=== PATIENT | female | born 1955 | race Caucasian/White ===

== ENCOUNTER 2022-10-15 07:54 | Inpatient (IN) | payer OTHER ==
[~2022-10-15] VITALS: Ht 170.2 cm; Wt 59.0 kg
[2022-10-15] MEDS ORDERED: ACETAMINOPHEN 500 MG TABLET ONE (08:35)
[2022-10-15] MEDS ORDERED: oxyCODONE HCL 10 MG TAB.ER.12H PO ONE ×2 (08:37→08:45)
[2022-10-15] MEDS ORDERED: GABAPENTIN 300 MG CAPSULE PO ONE (08:45)
[2022-10-15] MEDS ORDERED: CEFAZOLIN SOD 2 GM in D5W 50 ML IV ONE (08:45)
[2022-10-15] MEDS ORDERED: SCOPOLAMINE HYDROBROMIDE 1 MG PATCH .72 H (TRANSDERM-SCOP) TD ONE (08:45)
[2022-10-15] MEDS ORDERED: ACETAMINOPHEN 500 MG TABLET PO ONE (08:45)
[2022-10-15] MEDS ORDERED: CELECOXIB 100 MG CAPSULE PO ONE (08:45)
[2022-10-15] MEDS ORDERED: PROPOFOL 200MG/ 20ML VIAL (DIPRIVAN) IV ONE (10:14)
[2022-10-15] MEDS ORDERED: KETOROLAC TROMETHAMINE 30 MG VIAL ONE (10:14)
[2022-10-15] MEDS ORDERED: NS IRRIG SOLN 1000 ML IR ONE (10:14)
[2022-10-15] MEDS ORDERED: WATER FOR IRRIGATION,STERILE 1,000 ML IRRIG.SOLN IR ONE (10:14)
[2022-10-15] MEDS ORDERED: DEXAMETHASONE SOD PHOSPHATE 4 MG/ML VIAL ONE (10:14)
[2022-10-15] MEDS ORDERED: MORPHINE SULFATE 10MG/10ML PF AMP ONE (10:14)
[2022-10-15] MEDS ORDERED: ONDANSETRON HCL 4 MG/2 ML VIAL ONE (10:14)
[2022-10-15] MEDS ORDERED: NS 1000 ML IV.SOLN IV ONE (10:14)
[2022-10-15] MEDS ORDERED: ROCURONIUM BROMIDE 10 MG/ML (ZEMURON) ONE (10:14)
[2022-10-15] MEDS ORDERED: DESFLURANE 15 MIN GAS INH ONE (10:14)
[2022-10-15] MEDS ORDERED: MIDAZOLAM HCL 2 MG/2 ML VIAL (VERSED) ONE (10:14)
[2022-10-15] MEDS ORDERED: SUGAMMADEX SODIUM 200 MG/2 ML VIAL IV ONE (10:14)
[2022-10-15] MEDS ORDERED: LR 1,000 ML IV.SOLN IV ONE (10:14)
[2022-10-15] MEDS ORDERED: BUPIVACAINE /PF 0.25% 30 ML VIAL INJ ONE (10:14)
[2022-10-15] MEDS ORDERED: TRANEXAMIC ACID 1,000 MG/10 ML VIAL ONE (10:14)
[2022-10-15] MEDS ORDERED: HYDROmorphone 1 MG/ML INJ. CARTRIDGE IVP PRN ×5 (11:00→11:15)
[2022-10-15] MEDS ORDERED: oxyCODONE HCL 5 MG TABLET PO PRN (11:00)
[2022-10-15] MEDS ORDERED: traMADol HCL HCL 50 MG TABLET (ULTRAM) PO PRN (11:00)
[2022-10-15] MEDS ORDERED: LORATADINE 10 MG TABLET PO PRN (11:00)
[2022-10-15] MEDS ORDERED: METOCLOPRAMIDE HCL 10 MG/2 ML VIAL IVP PRN ×2 (11:15→13:15)
[2022-10-15] MEDS ORDERED: NALOXONE HCL 0.4 MG/ML AMP (NARCAN) IVP PRN ×4 (11:15→13:15)
[2022-10-15] MEDS ORDERED: DIPHENHYDRAMINE INJ 50 MG/ML VIAL IVP PRN (11:15)
[2022-10-15] MEDS ORDERED: MIDAZOLAM HCL 2 MG/2 ML VIAL (VERSED) IVP PRN (11:15)
[2022-10-15] MEDS ORDERED: MEPERIDINE HCL/PF 25 MG/ML DISP.SYRIN IVP PRN (11:15)
[2022-10-15] MEDS ORDERED: ONDANSETRON HCL 4 MG/2 ML VIAL IVP PRN ×2 (11:15→11:45)
[2022-10-15] MEDS: LR 1,000 ML IV SCH ×2 (11:15→21:46)
[2022-10-15] MEDS ORDERED: ACETAMINOPHEN I.V. 1000 MG 100 ML IV ONE (12:09)
[2022-10-15] MEDS ORDERED: LACTULOSE 20 GM/30 ML UDC PO PRN (13:15)
[2022-10-15] MEDS ORDERED: DIPHENHYDRAMINE HCL 25 MG CAPSULE PO PRN (13:15)
[2022-10-15] MEDS ORDERED: BISACODYL 10 MG/SUPPOSITORY RC PRN (13:15)
[2022-10-15] MEDS: ACETAMINOPHEN 500 MG TABLET PO SCH ×2 (14:00→21:44)
[2022-10-15] MEDS: KETOROLAC TROMETHAMINE 10 MG TABLET (TORADOL) PO SCH ×2 (14:00→22:00)
[2022-10-15 14:30] VITALS: BP_SYST 139
[2022-10-15] MEDS ORDERED: ZOLP10TA2 PO (14:55)
[2022-10-15] MEDS: oxyCODONE HCL 5 MG TABLET PO PRN ×2 (15:51→21:45)
[2022-10-15] MEDS: ceFAZolin SODIUM 2 GM in D5W 100 ML IV SCH ×2 (15:52→21:45)
[2022-10-15 16:02] VITALS: BP_SYST 132
[2022-10-15 20:00] VITALS: BP_SYST 128
[2022-10-15] MEDS: SENNOSIDES/DOCUSATE SODIUM 1 TAB TABLET(SENOKOT-S) PO SCH (21:00)
[2022-10-16] VITALS: BP_SYST 117
[2022-10-16] MEDS: ceFAZolin SODIUM 2 GM in D5W 100 ML IV SCH (05:47)
[2022-10-16] MEDS: KETOROLAC TROMETHAMINE 10 MG TABLET (TORADOL) PO SCH (05:50)
[2022-10-16] MEDS: oxyCODONE HCL 5 MG TABLET PO PRN (05:51)
[2022-10-16] MEDS: ACETAMINOPHEN 500 MG TABLET PO SCH (05:52)
[2022-10-16 07:52] LABS: BASOPHILS % (AUTO) 0.3 % (0.0-2.0); HEMATOCRIT 28.8 % (36-48); HEMOGLOBIN 9.8 g/dL (12.0-16.0); LYMPHOCYTES # (AUTO) 1.3 K/uL (1.0-5.5); MEAN CORPUSCULAR HEMOGLOBIN 30 pg (27-31); MEAN CORPUSCULAR HGB CONC 34 % (32-36); MEAN CORPUSCULAR VOLUME 88 fL (79.0-98.0); MONOCYTES # (AUTO) 0.9 K/uL (0.0-1.0); MONOCYTES % (AUTO) 9.1 % (1.7-9.3); NEUTROPHILS # (AUTO) 8.2 K/uL (1.8-7.7); NEUTROPHILS % (AUTO) 78.6 % (40.0-70.0); PLATELET COUNT (AUTO) 256 K/uL (130-430); RED BLOOD CELL COUNT(AUTO) 3.28 MIL/uL (4.2-6.2); RED CELL DISTRIBUTION WIDTH 14.4 % (9.0-15.0); WHITE BLOOD COUNT (AUTO) 10.4 K/uL (4.8-10.8)
[2022-10-16 08:00] VITALS: BP_SYST 117
[2022-10-16 08:05] LABS: CREATININE 1.02 mg/dL (0.55-1.30)
[2022-10-16 08:10] LABS: ALBUMIN 2.8 g/dL (3.4-4.8); TOTAL BILIRUBIN 0.4 mg/dL (0.0-1.0)
[2022-10-16] MEDS: SENNOSIDES/DOCUSATE SODIUM 1 TAB TABLET(SENOKOT-S) PO SCH (08:35)
[2022-10-16] MEDS ORDERED: DECADRON 4 MG TABLET PO SCH (09:00)
[2022-10-16] MEDS ORDERED: ASPIRIN 81 MG TAB.CHEW PO SCH (09:00)
[2022-10-16 10:03] VITALS: BP_SYST 117
[2022-10-16] MEDS ORDERED: CELECOXIB 200 MG CAPSULE PO SCH (11:00)
[2022-10-16 11:25] VITALS: BP_SYST 123
== END 2022-10-16 11:50 | disposition home health service (06) | DRG 470 ==
LOC: SMU 07:54
PROVIDERS: ADMIT Student in an Organized Health Care Education/Training Program; ATTEND Student in an Organized Health Care Education/Training Program
PROC: 0SR90JA Replacement of Right Hip Joint with Synthetic Substitute, Uncemented, Open Approach (ICD-10-PCS; principal; 2022-10-15 10:24)
DX: M16.11 Unilateral primary osteoarthritis, right hip (principal)
CPT/HCPCS: 36415; 72170-TC; 76001; 80053; 85025; 87081; 88304; 88311; 96379; 97110-GP; 97116-GP; 97163-GP; 97530-GP; A4649; C1713; C1776; J0131; J0690; J1100; J1885; J2274; J2405; J2704; J3465; J3490; J7030; J7060; J7120; J8540